=== PATIENT | male | born 1975 | race Caucasian/White ===

== ENCOUNTER 2017-05-27 20:16 | Emergency (ER) | payer SELFPAY ==
[2017-05-27 20:29] VITALS: BP 153/96; PULSE 104; TEMP 97.9; BMI 32.5
--- NOTE | 2017-05-27 21:21 | PDOC ---
History of Present Illness - General Chief Complaint: Rash Stated Complaint: ALLERGIC REACTION Time Seen by Provider: 05/27/17 20:52 History Source: Patient Exam Limitations: No Limitations - History of Present Illness Initial Comments: 05/27/17 21:29 This is a 41-year-old male past medical history of diet-controlled diabetes no longer on medication who presents emergency Department with 2 days of redness to his cheeks and nose. Patient stated he was in his apartment where was warm and was sweating when he noticed his face that started to become erythematous and swollen overnight. Patient denies any itching, change in medications, change in soaps, shampoo, lotions, conditioners, perfumes, diet, difficulty swallowing, shortness of breath, fevers, chills. Past History - Past Medical History Allergies/Adverse Reactions: Allergies Allergy/AdvReac Type Severity Reaction Status Date / Time No Known Allergies Allergy Verified 05/27/17 20:25 Home Medications: Ambulatory Orders Cephalexin Monohydrate [Keflex -] 500 mg PO Q6H #40 capsule 05/27/17 COPD: No Diabetes: Yes - Suicide/Smoking/Psychosocial Hx Smoking History: Current some day smoker Have you smoked in the past 12 months: No Number of Cigarettes Smoked Daily: 2 Information on smoking cessation initiated: No Hx Alcohol Use: No Drug/Substance Use Hx: No Substance Use Type: None Review of Systems - Review of Systems Able to Perform ROS?: Yes Is the patient limited Sami proficient: No Constitutional: Yes: See HPI HEENTM: No: Symptoms Reported Respiratory: No: Symptoms reported Cardiac (ROS): No: Symptoms Reported ABD/GI: No: Symptoms Reported : No: Symptoms Reported Musculoskeletal: No: Symptoms Reported Integumentary: Yes: See HPI Neurological: No: Symptoms reported *Physical Exam - Vital Signs Last Vital Signs Temp Pulse Resp BP Pulse Ox 97.9 F 104 H 20 153/96 98 05/27/17 20:26 05/27/17 20:26 05/27/17 20:26 05/27/17 20:26 05/27/17 20:26 - Physical Exam General Appearance: Yes: Appropriately Dressed. No: Apparent Distress HEENT: positive: [place], TMs Normal, Pharynx Normal, Other (No sublingual edema present.). negative: Muffled/Hoarse voice Neck: positive: Trachea midline, Supple. negative: Stridor Respiratory/Chest: positive: Lungs Clear, Normal Breath Sounds. negative: Respiratory Distress, Accessory Muscle Use Cardiovascular: positive: Regular Rhythm, Regular Rate Integumentary: positive: Other (Raised erythematous area on bilateral cheeks extending across the nose.) Neurologic: positive: financial analysis advisor II-XII NML intact, Fully Oriented, Alert, Normal Mood/ Affect, Normal Response, Motor Strength 5/5 Medical Decision Making - Medical Decision Making 05/27/17 21:17 A/P: 41-year-old male with diet controlled diabetes with 2 days of raised erythematous area on bilateral cheeks and nose. Vital signs remarkable for heart rate of 104. Afebrile TMs pearly montanez without erythema. External auditory canals without lesions noted. Oropharynx clear without erythema or exudates. No lesions present. Erythematous area on cheeks and nose raised and warm to touch. Erysipelas infection Keflex 500mg qid x10 days return for wound check in 3 days *DC/Admit/Observation/Transfer Diagnosis at time of Disposition: Erysipelas - Discharge Dispostion Disposition: HOME Condition at time of disposition: Stable Admit: No - Prescriptions Prescriptions: Cephalexin Monohydrate [Keflex -] 500 mg PO Q6H #40 capsule - Referrals Referrals: Trae Zaidi MD [Staff Physician] - - Patient Instructions Printed Discharge Instructions: DI for Erysipelas Additional Instructions: Take Keflex 4 times a day until all the medication is complete. Return to primary doctor or make an appointment with Dr. Larkin for reevaluation in 3 days. Make sure you wash her hands every time you touch her face. Return to emergency department for worsening redness, fevers, chills, dizziness , increased pain in the face or any other concerns. Thank you very much for choosing us to provide your emergent healthcare needs. - Post Discharge Activity
== END 2017-05-27 21:51 | disposition home or self-care (01) ==
LOC: JER 20:16
DX: A46 Erysipelas (principal)
CPT/HCPCS: 99281-25